=== PATIENT | female | born 1945 | race Caucasian/White ===

== ENCOUNTER 2021-03-27 08:43 | Day surgery (SDC) | payer OTHER ==
[2021-03-27] MEDS ORDERED: Ringers Lactate 1,000 ML IV ONE (08:47)
[2021-03-27] MEDS ORDERED: propofoL 200 MG/20 ML VIAL IV ONE ×2 (10:50→10:51)
[2021-03-27] MEDS ORDERED: LIDOCAINE 1% MPF 5 ML VIAL ONE (10:51)
--- NOTE | 2021-03-27 11:32 | ENDO RPT ---
[address], [address] COLONOSCOPY PROCEDURE REPORT EXAM DATE: 03/27/2021 PATIENT NAME: Debbie Puckett MR #: [id number] BIRTHDATE: 1945 ATTENDING: Donovan Corrales DR STATUS: outpatient TUG MASTER: Olena Mc RN and Ble Jackieoh Kang INDICATIONS: The patient is a 76 yr old Female here for a colonoscopy due to colon cancer screening PROCEDURE PERFORMED: Colonoscopy and Screening Colonoscopy MEDICATIONS: Per Anesthesia. ESTIMATED BLOOD LOSS: None CONSENT: The patient understands the risks and benefits of the procedure and understands that these risks include, but are not limited to: sedation, allergic reaction, infection, perforation and/or bleeding. Alternative means of evaluation and treatment include, among others: physical exam, x-rays, and/or surgical intervention. The patient elects to proceed with this endoscopic procedure. DESCRIPTION OF PROCEDURE: During intra-op preparation period all mechanical medical equipment was checked for proper function. Hand hygiene and appropriate measures for infection prevention was taken. Procedure, possible complications, alternatives including, but not limited to possibility of bleeding, perforation, tear, infection, sepsis, need for surgery, need for blood transfusion, were explained to the patient. After the risks, benefits and alternatives of the procedure were thoroughly explained, Informed consent was verified, confirmed and timeout was successfully executed by the treatment team. The patient was placed in the left lateral position. A digital rectal exam was performed and revealed external hemorrhoids and A digital rectal exam was performed and revealed internal hemorrhoids. After appropriate level of anesthesia, the scope was passed. The [id number] ([id number]) endoscope was introduced through the anus and advanced to the cecum, which was identified by both the appendix and ileocecal valve. The quality of the prep was fair. The instrument was then slowly withdrawn as the colon was fully examined. Scope withdrawal time was 9 minutes. COLON FINDINGS: Mild diverticulosis was noted in the sigmoid colon. No bleeding was noted from the diverticulosis. Small internal and external hemorrhoids were found. Retroflexed views revealed no abnormalities. The scope was then completely withdrawn from the patient and the procedure terminated. ADVERSE EVENTS: There were no complications. IMPRESSIONS: 1. Mild diverticulosis was noted in the sigmoid colon 2. Small internal and external hemorrhoids RECOMMENDATIONS: 1. avoid NSAIDS for 2 weeks 2. Monitor for any evidence of rectal bleeding. 3. yearly hemoquant 4. hemorrhoidal hygiene 5. low fiber / diverticular diet RECALL: Return in 5 year(s) for Colonoscopy. Donovan Corrales DR eSigned: Donovan Corrales DR 03/27/2021 11:31 AM cc: CPT CODES: ICD9 CODES: PATIENT NAME: Debbie Puckett MR#: [id number]
[2021-03-27 14:11] VITALS: BP 154/87; TEMP 97.5; O2SAT 99
== END 2021-03-27 12:05 | disposition home or self-care (01) ==
LOC: OR 08:43
PROVIDERS: ATTEND Surgery
PROC: 0DJD8ZZ Inspection of Lower Intestinal Tract, Via Natural or Artificial Opening Endoscopic (ICD-10-PCS; principal; 2021-03-27 10:30)
DX: Z12.11 Encounter for screening for malignant neoplasm of colon (principal); K64.4 Residual hemorrhoidal skin tags; K57.30 Diverticulosis of large intestine without perforation or abscess without bleeding; Z20.822 Contact with and (suspected) exposure to COVID-19
CPT/HCPCS: U0003; J2704; J7120; G0121

== ENCOUNTER 2023-07-05 20:43 | Observation (INO) | payer OTHER ==
[2023-07-05 21:23] LABS: Absolute Lymphocytes (CBC) 2.8 K/uL (0.7-4.9); Hematocrit 41.3 % (36.0-45.0); Lymphocytes % 31.9 % (15.3-44.8); MCV 94.3 fL (80-100); MPV 7.7 fL (7.6-11.3); Platelets 287 thou/uL (152-406); RBC Red Blood Cell Count 4.38 M/uL (3.86-4.86)
--- NOTE | 2023-07-05 21:42 | RAD REPORT ---
EXAM DESCRIPTION: RAD - Chest Single View - 07/05/2023 9:35 pm CLINICAL HISTORY: CHEST PAIN Chest pain. COMPARISON: Chest Pa And Lat (2 Views) dated 06/02/2022; Chest Pa And Lat (2 Views) dated 09/12/2019 FINDINGS: Portable technique limits examination quality. The lungs are grossly clear. The heart is normal in size. No displaced fractures. IMPRESSION: No acute intrathoracic process suspected.
[2023-07-05 21:52] LABS: Potassium 3.9 mEq/L (3.5-5.1); Troponin High Sensitivity 7.2 pg/mL (<58.9)
--- NOTE | 2023-07-05 21:57 | ER ---
Nurse's Notes [facility] Name: Debbie Puckett Age: 78 yrs Sex: Female : 1945 Arrival Date: 07/05/2023 Time: 20:43 Bed 3 Private MD: Diagnosis: Unstable angina;Chest pain, unspecified Presentation: 07/05 20:51 Chief complaint: EMS states: 78 YEAR OLD FEMALE REPORTS CHEST PAIN THAT STARTED AROUND ha1 1929. ON OUR ARRIVAL 325 mg OF ASPIRIN WERE GIVEN PT. REPORTS NO PAIN AT THIS MOMENT. 20:51 Coronavirus screen: Vaccine status:. Ebola Screen: No symptoms or risks identified at ha this time. Initial Sepsis Screen: Does the patient meet any 2 criteria? No. Patient's initial sepsis screen is negative. Does the patient have a suspected source of infection? No. Patient's initial sepsis screen is negative. Risk Assessment: Do you want to hurt yourself or someone else? Patient reports no desire to harm self or others. Onset of symptoms was July 05, 2023. 20:51 Method Of Arrival: EMS: [facility] 20:51 Acuity: ALEXANDER 3 ha1 Triage Assessment: 20:51 General: Appears comfortable, Behavior is calm, cooperative. Pain: Denies pain. Neuro: ha1 Level of Consciousness is awake, alert, obeys commands, Oriented to person, place, time, situation. Cardiovascular: Capillary refill < 3 seconds Patient's skin is warm and dry. Cardiovascular: Reports since PT STATES " BEFORE THE AMBULANCE GAVE ME ASPIRIN I WAS FEELING CHEST PAIN BUT NOT ANY MORE" DENIES CHEST PAIN. Respiratory: Airway is patent Respiratory effort is even, unlabored, Respiratory pattern is regular, symmetrical. GI: No signs and/or symptoms were reported involving the gastrointestinal system. Abdomen is round non-distended. : No signs and/or symptoms were reported regarding the genitourinary system. Derm: Skin is pink, warm \\T\\ dry. Musculoskeletal: Circulation, motion, and sensation intact. Range of motion: intact in all extremities. Historical: - Allergies: 20:51 Sulfa (Sulfonamide Antibiotics); ha1 - PMHx: 20:51 Hypertensive disorder; RIGHT BUNDLE BLOCK; ha1 - Immunization history:: Adult Immunizations up to date. - Social history:: Smoking status: Patient denies any tobacco usage or history of. - Family history:: not pertinent. - Hospitalizations: : No recent hospitalization is reported. Screenin:51 [facility] ED Fall Risk Assessment (Adult) History of falling in the last 3 months, ha1 including since admission No falls in past 3 months (0 pts) Confusion or Disorientation No (0 pts) Intoxicated or Sedated No (0 pts) Impaired Gait No (0 pts) Mobility Assist Device Used No (0 pt) Altered Elimination No (0 pt) Score/Fall Risk Level 0 - 2 = Low Risk Oriented to surroundings, Assessed \\T\\ reinforced patient's understanding of fall precautions, Hourly rounding (assess needs \\T\\ fall precautionary measures) done. Abuse screen: Denies threats or abuse. Denies injuries from another. Nutritional screening: No deficits noted. Tuberculosis screening: No symptoms or risk factors identified. Assessment: 20:51 Reassessment: SEE TRIAGE ASSESSMENT. ha1 21:50 Reassessment: Patient and/or family updated on plan of care and expected duration. Pain ha1 level reassessed. Patient is alert, oriented x 3, equal unlabored respirations, skin warm/dry/pink. Patient denies pain at this time. 22:25 Reassessment: REPORT GIVEN TO TRINH [facility]. ha1 23:00 Reassessment: No changes from previously documented assessment. Patient and/or family vc1 updated on plan of care and expected duration. Pain level reassessed. Patient is alert, oriented x 3, equal unlabored respirations, skin warm/dry/pink. Vital Signs: 20:51 BP 167 / 69; Pulse 63; Resp 17 S; Temp 97.9(T); Pulse Ox 98% on R/A; Weight 100.7 kg; ha1 Height 5 ft. 4 in. ; Pain 0/10; 21:45 BP 144 / 64; Pulse 64; Resp 17 S; Pulse Ox 97% on R/A; ha1 22:30 BP 140 / 62; Pulse 63; Resp 14; Pulse Ox 98% ; vc1 20:51 Body Mass Index 38.11 (100.70 kg, 162.56 cm) ha1 20:51 Pain Scale: Adult [facility] ED Course: 20:51 Patient arrived in ED. vc1 20:51 Arm band placed on left wrist. ha1 20:51 Patient has correct armband on for positive identification. Bed in low position. Call ha1 light in reach. Side rails up X 1. Adult w/ patient. 20:51 Maintain EMS IV. Dressing intact. Good blood return noted. Site clean \\T\\ dry. Gauge \\T\\ monsalve 1 site: 20 JENNIFER LEFT AC. 20:54 Abel Ray MD is Attending Physician. rn 21:01 Triage completed. ha1 21:37 XRAY Chest (1 view) In Process Unspecified. EDMS 21:56 Jacob Clements MD is Hospitalizing Provider. rn 22:10 Provided Education on: NEED FOR ADMIT . ha1 23:10 No provider procedures requiring assistance completed. Patient admitted, IV remains in vc1 place. Administered Medications: No medications were administered Medication: 20:51 VIS not applicable for this client. ha1 Outcome: 21:56 Decision to Hospitalize by Provider. rn 23:10 Admitted to Tele accompanied by nurse, via wheelchair, room 402, with chart, Report vc1 called to TRINH Mc 23:10 Condition: good 23:11 Patient left the ED. vc1 Signatures: Dispatcher [employer] EDMS Abel Ray MD MD rn Calcote, Vanessa, RN RN vc1 Sabine Lopez, TRINH RN ha1
--- NOTE | 2023-07-05 21:57 | EDPHYS ---
Physician Documentation [facility] Name: Debbie Puckett Age: 78 yrs Sex: Female : 1945 Arrival Date: 07/05/2023 Time: 20:43 Bed 3 Private MD: ED Physician Abel Ray HPI: 07/05 21:14 This 78 yrs old Female presents to ER via EMS with complaints of chest pain . rn 21:14 The patient or guardian reports chest pain that is located primarily in the substernal rn area. Onset: just prior to arrival. The pain radiates to left neck. Associated signs and symptoms: Pertinent positives: shortness of breath, Pertinent negatives: abdominal pain, cough, diaphoresis, lower extremity pain, lower extremity swelling, lightheadedness, nausea, palpitations. The chest pain is described as a heaviness, a pressure. Duration: The patient or guardian reports a single episode, that lasted 1 hour(s). Severity of pain: At its worst the pain was moderate in the emergency department the pain has resolved. The patient has experienced similar episodes in the past. Patient reports chest pain for about 1 hour prior to arrival, constant, substernal with radiation to the neck. Associated with shortness of breath. Reports has been having intermittent episodes of chest pain over the last couple weeks, saw oiler helper this week with stress test and echo and was told abnormal stress test and needed heart cath. Has not scheduled her heart cath yet. Chest pain worse and lasted longer tonight. Chest pain resolved since arrival and given aspirin by EMS 324 mg.. Historical: - Allergies: 20:51 Sulfa (Sulfonamide Antibiotics); ha1 - PMHx: 20:51 Hypertensive disorder; RIGHT BUNDLE BLOCK; ha1 - Immunization history:: Adult Immunizations up to date. - Social history:: Smoking status: Patient denies any tobacco usage or history of. - Family history:: not pertinent. - Hospitalizations: : No recent hospitalization is reported. ROS: 21:14 Constitutional: Negative for fever, chills, and weight loss, Cardiovascular: Positive rn for chest pain Respiratory: Negative for cough, wheezing, and pleuritic chest pain Abdomen/GI: Negative for abdominal pain, nausea, vomiting, diarrhea, and constipation, MS/Extremity: Negative for injury and deformity, Skin: Negative for injury, rash, and discoloration, Neuro: Negative for headache, weakness, numbness, tingling, and seizure, Exam: 21:14 Constitutional: This is a well developed, well nourished patient who is awake, alert, rn and in no acute distress. Head/Face: Normocephalic, atraumatic. Cardiovascular: Regular rate and rhythm. No pulse deficits. Respiratory: No increased work of breathing, no retractions or nasal flaring. Abdomen/GI: Soft, no abdominal tenderness or rebound MS/ Extremity: Pulses equal, no cyanosis. Neurovascular intact. Full, normal range of motion. Equal circumference. Neuro: Awake and alert, GCS 15 21:29 ECG was reviewed by the Attending Physician. rn Vital Signs: 20:51 BP 167 / 69; Pulse 63; Resp 17 S; Temp 97.9(T); Pulse Ox 98% on R/A; Weight 100.7 kg; ha1 Height 5 ft. 4 in. ; Pain 0/10; 21:45 BP 144 / 64; Pulse 64; Resp 17 S; Pulse Ox 97% on R/A; ha1 22:30 BP 140 / 62; Pulse 63; Resp 14; Pulse Ox 98% ; vc1 20:51 Body Mass Index 38.11 (100.70 kg, 162.56 cm) ha1 20:51 Pain Scale: Adult ha1 MDM: 20:54 Patient medically screened. rn 21:54 Differential diagnosis: acute myocardial infarction, acute pericarditis, anxiety, rn coronary artery disease chest wall pain, esophagitis, gastritis, pleurisy, pneumothorax, stable angina, unstable angina. HEART Score: History: Highly Suspicious (2), ECG: Non specific repolarization disturbance / LBTB / PM (1), Age: > or = 65 years (2), Risk Factors: 1 or 2 risk factors (1), Troponin: < or = 1 x Normal Limit (0), Total Score = 6. The patient was not given aspirin in the Emergency Department. Administered by EMS. Data reviewed: vital signs, nurses notes, lab test result(s), EKG, radiologic studies, plain films, and as a result, I will admit patient. Consideration of Admission/Observation Patient was admitted/placed on observation. Escalation of care including admission/observation considered. Care significantly affected by the following chronic conditions: Hypertension. Counseling: I had a detailed discussion with the patient and/or guardian regarding the historical points, exam findings, and any diagnostic results supporting the discharge/admit diagnosis, lab results, radiology results, the need for further work-up and treatment in the hospital. ED course: Troponin negative, no ischemia on ECG. Patient gives story of unstable angina with increase in chest pain frequency and now longer in duration which prompted her to come in. Already had outpatient stress and echo which were abnormal. Told to schedule cath but had not yet. Will admit to hospitalist service for cardiology evaluation and heart cath. EMS administered aspirin prior to arrival, chest pain resolved since arrival.. 02 20:56 Order name: Basic Metabolic Panel; Complete Time: 21:53 rn 07/05 20:56 Order name: CBC with Diff; Complete Time: 21:37 rn 07/05 20:56 Order name: Troponin HS; Complete Time: 21:53 rn 07/05 22:14 Order name: Urinalysis w/ reflexes EDAK 07/05 22:14 Order name: CBC with Automated Diff EDAK 07/05 22:14 Order name: CBC with Automated Diff EDAK 07/05 22:14 Order name: CBC with Automated Diff EDAK 07/05 22:14 Order name: CBC with Automated Diff EDAK 07/05 22:14 Order name: Comprehensive Metabolic Panel EDAK 07/05 22:14 Order name: Comprehensive Metabolic Panel [facility] 07/05 22:14 Order name: Comprehensive Metabolic Panel [facility] 07/05 22:14 Order name: Comprehensive Metabolic Panel [facility] 07/05 22:14 Order name: Troponin High Sensitivity EDAK 07/05 22:14 Order name: Troponin High Sensitivity [facility] 07/05 22:14 Order name: Troponin High Sensitivity [facility] 07/05 22:14 Order name: Troponin High Sensitivity [facility] 07/05 23:03 Order name: Glucose, Ancillary Testing EDAK 07/05 20:56 Order name: XRAY Chest (1 view); Complete Time: 21:45 rn 07/05 20:56 Order name: EKG; Complete Time: 20:56 rn 07/05 20:56 Order name: Cardiac monitoring; Complete Time: 20:56 rn 07/05 20:56 Order name: EKG - Nurse/Tech; Complete Time: 20:56 rn 07/05 20:56 Order name: IV Saline Lock; Complete Time: 20:56 rn 07/05 20:56 Order name: Labs collected and sent; Complete Time: 20:56 rn 07/05 20:56 Order name: O2 Per Protocol; Complete Time: 20:56 rn 07/05 20:56 Order name: O2 Sat Monitoring; Complete Time: 20:56 rn EC:29 Rate is 67 beats/min. Rhythm is regular. QRS [place] is Normal. WI interval is normal. QRS rn interval is prolonged at 124 msec. QT interval is normal. No Q waves. T waves are Normal. No ST changes noted. Clinical impression: NSR w/ Non-specific ST/T Changes and RBBB. Interpreted by me. Reviewed by me. Administered Medications: No medications were administered Disposition Summary: 07/05/23 21:56 Hospitalization Ordered Notes: Hospitalization Status: Inpatient Admission rn Provider: Jacob Clements rn Location: Telemetry/MedSurg (Inpatient) rn Condition: Stable rn Problem: an ongoing problem rn Symptoms: have worsened rn Bed/Room Type: Standard rn Room Assignment: 402(07/05/23 22:17) as6 Diagnosis - Unstable angina rn - Chest pain, unspecified rn Forms: - Medication Reconciliation Form rn - SBAR form rn - Leadership Thank You Letter rn Signatures: Dispatcher [employer] EDAbel Sanchez MD MD rn Slawson, Ashby RN RN as6 Sabine Lopez RN RN ha1 Corrections: (The following items were deleted from the chart) 21:16 21:14 Patient reports chest pain for about 1 hour prior to arrival, constant, rn substernal with radiation to the neck. Associated with shortness of breath. Reports has been having intermittent episodes of chest pain over the last couple weeks, saw oiler helper this week with stress test and echo and was told abnormal stress test and needed heart cath. Has not scheduled her heart cath yet. Chest pain worse and lasted longer tonight.. rn 22:17 21:56 rn as6
[2023-07-05] MEDS ORDERED: ACETAMINOPHEN 325 MG TABLET PO PRN (22:05)
[2023-07-05] MEDS ORDERED: ONDANSETRON 4 MG/2 ML VIAL IV PRN (22:05)
[2023-07-05] MEDS ORDERED: ALPRAZOLAM 0.25 MG TABLET PO PRN (22:05)
--- NOTE | 2023-07-05 22:12 | P.HP ---
Certification for Inpatient Patient admitted to: Observation With expected LOS: <2 Midnights Practitioner: I am a practitioner with admitting privileges, knowledge of patient current condition, hospital course, and medical plan of care. Services: Services provided to patient in accordance with Admission requirements found in Title 42 Section 412.3 of the Code of Federal Regulations Patient History Date of Service: 07/06/23 Reason for admission: Chest pain History of Present Illness: 78-year-old female patient with medical history significant for hyperlipidemia, morbid obesity, hypertension and what had recurrent chest pain who came to the ED with persistent chest pain. She reported that she had ongoing recurrent chest pain outpatient stress test that was positive. She was to have scheduled outpatient left heart cath procedure done this week so subsequently she developed persistent pain. Chest pain was rated 8 out of 10 in intensity located in the mid chest region with radiation to the neck area. She decided to come to the ED because pain was persistent unrelenting. In the ED she EKG done showed no issues and initial troponin was normal. Because of her history and prior abnormal stress test she was admitted for inpatient care public relations officer evaluation. Allergies Sulfa (Sulfonamide Antibiotics) Allergy (Verified 07/05/23 23:35) Itching Home Medications: Acyclovir 200 mg PO PRN PRN 03/25/21 Multivit,Ther Iron,Ca,FA & Min [Centrum Tablet] 1 tab PO DAILY 03/25/21 oxyBUTYnin chloride [Ditropan Xl] 10 mg PO DAILY 03/25/21 Cetirizine HCl [Zyrtec] 5 mg PO BEDTIME 07/05/23 Loratadine [Claritin] 10 mg PO DAILY 07/05/23 Losartan Potassium [Cozaar] 25 mg PO DAILY 07/05/23 Review of Systems General: Unremarkable Eyes: Unremarkable ENT: Unremarkable Respiratory: Unremarkable Cardiovascular: Chest Pain Gastrointestinal: Unremarkable Genitourinary: Unremarkable Musculoskeletal: Unremarkable Integumentary: Unremarkable Neurological: Unremarkable Lymphatics: Unremarkable Physical Examination - Physical Exam General: Alert, Oriented x3 HEENT: Atraumatic Neck: Supple Respiratory: Normal air movement Cardiovascular: Regular rate/rhythm, Normal S1 S2 Gastrointestinal: Soft and benign Musculoskeletal: No swelling Neurological: Normal speech, Normal strength at 5/5 x4 extr - Studies Laboratory Data (last 24 hrs) 07/05/23 07/05/23 21:00 21:00 WBC 8.70 Hgb 14.2 Hct 41.3 Plt Count 287 Sodium 137 Potassium 3.9 BUN 21 H Creatinine 0.97 Glucose 110 H Assessment and Plan - Plan Chest pain: Recurrent and concerning for unstable angina. Will continue on telemetry, trend troponin and also obtain echocardiogram to assess cardiac function. Continue aspirin therapy and also obtain lipid panel to assess further. Will have public relations officer evaluate for possible left heart cath. Hypertension: We will monitor vital signs per unit protocol and continue outpatient antihypertensive medications. Morbid obesity: We will continue to encourage weight loss. Hyperlipidemia: We will continue statin therapy and obtain lipid panel to assess. Prophylaxis Lovenox for DVT prophylaxis. CODE STATUS: Full code. Disposition: We will treat ACS and discharge her when she is deemed clinically stable. - Advance Directives Does patient have a Living Will: No Does patient have a Durable POA for Healthcare: No
[2023-07-05 23:39] VITALS: BMI 39.4
[2023-07-06 00:53] LABS: Specific Gravity 1.023 (1.005-1.030); Urine Bacteria None Seen /HPF (<20); Urine Bilirubin NEGATIVE (Negative); Urine Blood Negative (Negative); Urine Clarity Clear (Clear); Urine Color Light-Yellow (Yellow); Urine Glucose NEGATIVE (Negative); Urine Mucus Slight /HPF (None Seen); Urine Protein NEGATIVE (Negative); Urine RBC <5 /HPF (None Seen); Urine Urobilinogen Normal (Normal)
[2023-07-06] MEDS ORDERED: MORPHINE 2 MG/ML SYR IV PRN (05:23)
[2023-07-06 06:35] LABS: Absolute Lymphocytes (CBC) 2.9 K/uL (0.7-4.9); Hematocrit 37.7 % (36.0-45.0); Lymphocytes % 40.5 % (15.3-44.8); MCV 94.4 fL (80-100); MPV 7.4 fL (7.6-11.3); Platelets 249 thou/uL (152-406); RBC Red Blood Cell Count 3.99 M/uL (3.86-4.86)
[2023-07-06 06:57] LABS: Albumin 2.9 g/dL (3.4-5.0); Bilirubin Total 0.5 mg/dL (0.2-1.0); Potassium 3.6 mEq/L (3.5-5.1); Protein, Total 6.3 g/dL (6.4-8.2); Troponin High Sensitivity 8.3 pg/mL (<58.9)
[2023-07-06] MEDS: ASPIRIN 81 MG CHEWABLE TABLET PO SCH (08:46)
[2023-07-06] MEDS: ENOXAPARIN 40 MG/0.4 ML SQ SCH (08:47)
--- NOTE | 2023-07-06 11:06 | P.CNS ---
Date of Consult: 07/06/23 Chief Complaint: Chest pain History of Present Illness: 78 y/o female with PMH of HTN, HLD, Obesity, HLD presented with worsening chest pain, she had it for one hour yesterday, feels like pressure in the middle of the chest, patient was seen earlier in clinic and she had an abnormal stress test and was getting scheduled as outpatient for coronary angiogram, denies palpitation, no syncope. Allergies Sulfa (Sulfonamide Antibiotics) Allergy (Verified 07/05/23 23:35) Itching Home Medications: Acyclovir 200 mg PO PRN PRN 03/25/21 Multivit,Ther Iron,Ca,FA & Min [Centrum Tablet] 1 tab PO DAILY 03/25/21 oxyBUTYnin chloride [Ditropan Xl] 10 mg PO DAILY 03/25/21 Cetirizine HCl [Zyrtec] 5 mg PO BEDTIME 07/05/23 Loratadine [Claritin] 10 mg PO DAILY 07/05/23 Losartan Potassium [Cozaar] 25 mg PO DAILY 07/05/23 - Past Medical/Surgical History Diabetic: No -: HTN -: R Bundle branch block - Social History Alcohol use: Yes CD- Drugs: No Caffeine use: No Place of Residence: Home Review of Systems 10-point ROS is otherwise unremarkable Cardiovascular: Chest Pain Physical Examination Temp Pulse Resp BP Pulse Ox 96.9 F 65 18 146/65 H 97 07/06/23 08:00 07/06/23 08:00 07/06/23 08:00 07/06/23 08:00 07/06/23 08:00 General: Alert, Oriented x3 HEENT: Atraumatic, Normocephalic Neck: Supple, 2+ carotid pulse no bruit Respiratory: Clear to auscultation bilaterally Cardiovascular: No edema, Normal S1 S2 Gastrointestinal: Normal bowel sounds Laboratory Data (last 24 hrs) 07/05/23 07/05/23 21:00 21:00 WBC 8.70 Hgb 14.2 Hct 41.3 Plt Count 287 Sodium 137 Potassium 3.9 BUN 21 H Creatinine 0.97 Glucose 110 H - Problems (1) 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 keep NPO
[2023-07-06] MEDS: NA CHLORIDE 0.9% 500 ML ONE (12:19)
[2023-07-06] MEDS ORDERED: LIDOCAINE 1% 20 ML MDV ONE (13:13)
[2023-07-06] MEDS ORDERED: HEPA 1000U/500MLS 2,000 UNIT/1,000 ML BAG IV ONE (13:13)
[2023-07-06] MEDS ORDERED: ATROPINE SULF 1 MG/10 ML SYR IV ONE (13:13)
[2023-07-06] MEDS ORDERED: VERAPAMIL HCL 10 MG/4 ML VIAL IV ONE (13:13)
[2023-07-06] MEDS ORDERED: MIDAZOLAM HCL 2 MG/2 ML INJ ONE (13:13)
[2023-07-06] MEDS ORDERED: HEPARIN 5000 UNIT/ML 1 ML VIAL ONE (13:13)
[2023-07-06] MEDS ORDERED: FENTANYL CITR 100 MCG/2 ML ONE (13:13)
[2023-07-06] MEDS ORDERED: CLOPIDOGREL 75 MG TABLET ONE (13:14)
[2023-07-06] MEDS ORDERED: HEPARIN 10,000 UNIT/10 ML VIAL IV ONE (13:14)
[2023-07-06] MEDS ORDERED: TICAGRELOR 90 MG TABLET PO ONE (13:14)
[2023-07-06] MEDS ORDERED: ASPIRIN 325 MG TAB ONE (13:14)
--- NOTE | 2023-07-06 13:24 | ECHO ---
HEIGHT: 5 ft 4 in WEIGHT: 230 lb 0 oz DATE OF STUDY: 07/06/[address]: Jacob Clements MD 2-DIMENSIONAL: YES M.MODE: YES DOPPLER: YES COLOR FLOW: YES TDS: PORTABLE: YES DEFINITY: BUBBLE STUDY: DIAGNOSIS: PATIENT WITH RECURRING CHEST PAIN CARDIAC HISTORY: CATHERIZATION: NO SURGERY: NO PROSTHETIC VALVE: NO PACEMAKER: NO MEASUREMENTS (cm) DIASTOLIC (NORMALS) SYSTOLIC (NORMALS) IVSd 1.1 (0.6-1.2) LA Diam 2.5 (1.9-4.0) LVEF 73% LVIDd 4.2 (3.5-5.7) LVIDs 2.4 (2.0-3.5) %FS 42% LVPWd 1.2 (0.6-1.2) Ao Diam 2.5 (2.0-3.7) 2 DIMENSIONAL ASSESSMENT: RIGHT ATRIUM: NORMAL LEFT ATRIUM: NORMAL RIGHT VENTRICLE: NORMAL LEFT VENTRICLE: NORMAL TRICUSPID VALVE: NORMAL MITRAL VALVE: NORMAL PULMONIC VALVE: NORMAL AORTIC VALVE: NORMAL PERICARDIAL EFFUSION: TRACE AORTIC ROOT: TRACE AORTIC REGURGITATION LEFT VENTRICULAR WALL MOTION: NORMAL DOPPLER/COLOR FLOW: GRADE I DIASTOLIC DYSFUNCTION COMMENTS: 1. NORMAL LEFT VENTRICULAR SYSTOLIC FUNCTION, NORMAL WALL MOTION, EJECTION FRACTION 55-60% 2. GRADE I DIASTOLICDYSFUNCTION 3. TRADE AORTIC REGURGITAITION, TRACE TRICUSPID REGURGITATION 4. RIGHT VENTRICULAR SYSTOLIC PRESSURE 25-30 mmHg TECHNOLOGIST: JENNY BOWSER
--- NOTE | 2023-07-06 13:33 | EKG ---
Test Date: 2023-07-05 Test Time: 20:45:58 Commercial Construction Superintendent: KIRT MEASUREMENT RESULTS: Intervals: Rate: 67 CO: 180 QRSD: 124 QT: 424 QTc: 448 [place]: P: 19 CO: 180 QRS: 30 T: 43 INTERPRETIVE STATEMENTS: Normal sinus rhythm Right bundle branch block Abnormal ECG Compared to ECG 09/12/2019 11:46:00 Sinus bradycardia no longer present Electronically Signed On 07-06-23 13:32:24 CDL [employer] by Jeremiah Miller
--- NOTE | 2023-07-06 14:25 | P.DS ---
Admission Date: 07/05/23 Discharge Date: 07/06/23 Disposition: ROUTINE DISCHARGE Discharge Condition: FAIR Reason for Admission: Chest pain - Problems (1) Chest pain Current Visit: Yes Status: Acute (2) Morbid obesity Current Visit: Yes Status: Acute (3) Essential hypertension Current Visit: Yes Status: Acute Brief History of Present Illness: 78-year-old female patient with medical history significant for hyperlipidemia, morbid obesity, hypertension and who has been experiencing recurrent chest pain came to the ED with a chest pain episode. She reported that she underwent outpatient stress test which was positive. She was scheduled for outpatient left heart cath procedure this week. Chest pain located in the mid chest region with radiation to the neck area. In the ED, EKG done did not show any sign of acute ischemia and initial troponin was normal. Patient was hospitalized for ACS rule out and cardiology evaluation for possible cardiac cath. Hospital Course: Patient was placed in observation on the medical floor. Troponin trended negative. Patient was seen and evaluated by cardiology Dr. Miller who performed cardiac catheterization. No cardiac intervention done. Patient deemed stable for discharge per Dr. Hooker. She is prescribed baby aspirin. No other changes made in her home medications. Vital Signs/Physical Exam: Temp Pulse Resp BP Pulse Ox 96.9 F 65 18 146/65 H 97 07/06/23 08:00 07/06/23 08:00 07/06/23 08:00 07/06/23 08:00 07/06/23 08:00 General: Alert, In no apparent distress, Oriented x3 HEENT: Mucous membr. moist/pink Neck: Supple, JVD not distended Respiratory: Clear to auscultation bilaterally, Normal air movement Cardiovascular: No edema, Regular rate/rhythm, Normal S1 S2 Gastrointestinal: Normal bowel sounds, Soft and benign, Non-distended, No tenderness Musculoskeletal: No swelling Integumentary: No rashes, No cyanosis Neurological: Normal strength at 5/5 x4 extr Laboratory Data at Discharge: WBC 7.20 thou/uL (4.3-10.9) 07/06/23 06:06 Hgb 13.1 g/dL (12.0-15.0) 07/06/23 06:06 Hct 37.7 % (36.0-45.0) 07/06/23 06:06 Plt Count 249 thou/uL (152-406) 07/06/23 06:06 Sodium 139 mEq/L (136-145) 07/06/23 06:06 Potassium 3.6 mEq/L (3.5-5.1) 07/06/23 06:06 BUN 17 mg/dL (7-18) 07/06/23 06:06 Creatinine 0.87 mg/dL (0.55-1.02) 07/06/23 06:06 Glucose 100 mg/dL (74-106) 07/06/23 06:06 Total Bilirubin 0.5 mg/dL (0.2-1.0) 07/06/23 06:06 AST 15 U/L (15-37) 07/06/23 06:06 ALT 19 U/L (13-56) 07/06/23 06:06 Alkaline Phosphatase 71 U/L (45-117) 07/06/23 06:06 Home Medications: Acyclovir 200 mg PO PRN PRN 03/25/21 Multivit,Ther Iron,Ca,FA & Min [Centrum Tablet*] 1 tab PO DAILY 03/25/21 oxyBUTYnin chloride [Ditropan Xl] 10 mg PO DAILY 03/25/21 Cetirizine HCl [Zyrtec*] 5 mg PO BEDTIME 07/05/23 Loratadine [Claritin*] 10 mg PO DAILY 07/05/23 Losartan Potassium [Cozaar] 25 mg PO DAILY 07/05/23 Aspirin Chewable [Aspirin Chewable*] 81 mg PO DAILY #30 tab.chew 07/06/23 New Medications: Aspirin Chewable [Aspirin Chewable*] 81 mg PO DAILY #30 tab.chew Diet: AHA Activity: Ad naeem Followup: NONE,NONE [Primary Care Provider] - 1-2 Weeks Jeremiah Miller MD [ACTIVE - CAN ADMIT] - 1-2 Weeks Time spent managing pt's care (in minutes): 25
[2023-07-06 15:57] VITALS: O2SAT 99
[2023-07-06 17:24] VITALS: BP 186/80; TEMP 97.7
--- NOTE | 2023-07-07 00:38 | OP ---
Date of Procedure: 07/06/2023 Surgeon: THOMAS JONES Procedure Performed: 1.Selective coronary angiogram. 2.Left heart catheterization. Indication: Chest pain with abnormal stress test. Access: Right radial artery 6-Cameroonian, closed with TR band. Complications: None. Bleeding: Less than 20 mL. Anesthesia: Total sedation time was 30 minutes, used fentanyl and Versed. Description Of Procedure: After risks, benefits, and alternatives were explained, the patient agreed to procedure and signed informed consent. The patient was brought to the cardiac catheterization la boratory, prepped and draped in a sterile fashion. Then, I accessed right radial artery using pediat herminia micropuncture kit, placed a 6-Cameroonian slender sheath and took 5-Cameroonian tiger 4 catheter into the a ortic root, engaged left main, took standard views and then the RCA, took standard views and then the catheter was pushed over the wire into the LV, measured LVEDP. Pullback not recording any gradient and removed the catheter and the sheath, placed TR band with good hemostasis. Findings: 1.Left main: Large and normal. 2.LAD: Large vessel. Proximal segment is normal. Mid segment after the diagonal takeoff, there is focal 20% to 30% stenosis and a long segment in the mid to distal with 10% to 20% stenosis. Rest of the LAD is normal. Normal diagonal branches. 3.Left circumflex: Moderate size and normal. 4.RCA: It is large size and dominant and normal. 5.Normal LVEDP of 5 mmHg. Conclusion: 1.Mild nonobstructive coronary artery disease. 2.Normal LVEDP. Recommendation: Medical management. From Cardiology standpoint, the patient can be released today a nd follow up as an outpatient within 1-2 weeks. SR/MODL Voice ID: [id number] Report ID: [id number]
== END 2023-07-06 16:50 | disposition home or self-care (01) ==
LOC: ER 20:43 → 4TH 22:05
PROVIDERS: ADMIT Internal Medicine Nephrology; ATTEND Internal Medicine
PROC: 4A023N7 Measurement of Cardiac Sampling and Pressure, Left Heart, Percutaneous Approach (ICD-10-PCS; principal; 2023-07-06)
PROC: B2011ZZ Plain Radiography of Multiple Coronary Arteries using Low Osmolar Contrast (ICD-10-PCS; 2023-07-06)
DX: I25.112 Atherosclerotic heart disease of native coronary artery with refractory angina pectoris (principal); I10 Essential (primary) hypertension; I45.10 Unspecified right bundle-branch block; E78.5 Hyperlipidemia, unspecified; E66.01 Morbid (severe) obesity due to excess calories; Z68.39 Body mass index [BMI] 39.0-39.9, adult; Z79.899 Other long term (current) drug therapy; Z88.2 Allergy status to sulfonamides
CPT/HCPCS: 36415; 71045; 76937; 80048; 80053; 81001; 82947; 84484; 85025; 93005; 93306; 93458; 99152; 99153; 99285; C1893; G0378; J0461; J1644; J1650; J2001; J2250; J3010; J7040; Q9966

== ENCOUNTER 2024-08-04 17:40 | Emergency (ER) | payer OTHER ==
--- NOTE | 2024-08-04 19:03 | RAD REPORT ---
EXAMINATION: TWO VIEW CHEST XR CLINICAL INDICATION: BLUNT CHEST TRAUMA TECHNIQUE: 2 views of the chest was performed. COMPARISON: 08/14/2023 FINDINGS: The lungs are hyperexpanded suggesting COPD. The heart is upper limit of normal in size. No displaced fractures evident. IMPRESSION: COPD is suspected without acute finding identified.
--- NOTE | 2024-08-04 19:23 | EDPHYS ---
Physician Documentation [facility] Name: Debbie Puckett Age: 79 yrs Sex: Female : 1945 Arrival Date: 08/04/2024 Time: 17:40 Bed DIS7 Private MD: ED Physician Mart Nation HPI: 08/04 21:18 This 79 yrs old Female presents to ER via Ambulatory with complaints of dr5 Breast Injury. 21:18 Trauma demographics: Location of Injury: The injury occurred [place], Date: August 04, dr5 2024, Time: 14:30. Mechanism of injury: Fall:. Patient is a 79-year-old female with hypertension coming in with fall to right chest causing patient to have bruising to right breast. Patient denies loss of consciousness, hitting head, or any other injuries.. Historical: - Allergies: 17:57 Sulfa (Sulfonamide Antibiotics); ll1 - PMHx: 17:57 Hypertensive disorder; RIGHT BUNDLE BLOCK; ll1 - PSHx: 17:57 None; ll1 - Immunization history:: Adult Immunizations up to date. - Infectious Disease History:: Denies. - Social history:: Smoking status: Patient denies any tobacco usage or history of. ROS: 21:18 Constitutional: as per hpi dr5 Exam: 21:18 Constitutional: This is a well developed, well nourished patient who is awake, alert, dr5 and in no acute distress. Head/Face: Normocephalic, atraumatic. Eyes: Pupils equal round and reactive to light, extra-ocular motions intact. Lids and lashes normal. Conjunctiva and sclera are non-icteric and not injected. Cornea within normal limits. Periorbital areas with no swelling, redness, or edema. Cardiovascular: Regular rate and rhythm with a normal S1 and S2. Normal PMI, no JVD. No pulse deficits. 21:18 Chest/axilla: Inspection: Bruising / Contusion noted to right breast. TRINH Lees present on breast exam., Breasts: swelling, that is moderate, of the right breast, tenderness, that is moderate, of the right breast, Vital Signs: 17:56 BP 147 / 84; Pulse 87; Resp 18; Temp 97.8; Pulse Ox 98% ; Weight 108.86 kg; Height 5 ll1 ft. 4 in. ; Pain 5/10; 19:05 BP 159 / 74; Pulse 65; Resp 19; Temp 98.6; Pulse Ox 97% on R/A; ay 17:56 Body Mass Index 41.20 (108.86 kg, 162.56 cm) ll1 17:56 Pain Scale: Adult ll1 Procedures: 21:18 Splinting: Splint applied to chest and right arm using sling, applied by myself. dr5 Examined by me, post splint application: neurovascular intact, 2+ distal pulses palpable, brisk capillary refill noted, Patient tolerated well. MDM: 17:47 Medical Screening Exam initiated dr5 21:18 Differential diagnosis: Rib Fracture, Breast Contusion, PNA. Data reviewed: vital dr5 signs, nurses notes. I considered the following discharge prescriptions or medication management in the emergency department Medications were administered in the Emergency Department. See MAR. Historians other than the Patient: Spouse/Significant Other: . Care significantly affected by the following chronic conditions: Hypertension. Care significantly affected by the following Social Determinants of Health: Poor access to healthcare and/or lack of insurance, Poor access to transportation, Problems related to employment. Counseling: I had a detailed discussion with the patient and/or guardian regarding the historical points, exam findings, and any diagnostic results supporting the discharge/admit diagnosis, the presence of at least one elevated blood pressure reading (>120/80) during this emergency department visit, radiology results, the need for outpatient follow up, for definitive care, a family practitioner, to return to the emergency department if symptoms worsen or persist or if there are any questions or concerns that arise at home. Medication response: Beyer. Response to treatment: the patient's symptoms have markedly improved after treatment. ED course: Patient placed in right arm sling to help elevate right breast. Patient reports that sling remarkably improved her pain. Will send patient home with 800 milligrams ibuprofen as well as cephalexin to prevent infection. Patient is agreeable to plan and will follow-up with primary care doctor this week.. 08/04 18:00 Order name: Chest Pa And Lat (2 Views) XRAY; Complete Time: 19:07 dr5 08/04 19:34 Order name: Sling; Complete Time: 19:56 dr5 Administered Medications: 19:56 Drug: HYDROcodone-acetaminophen PO 5 mg-325 mg 2 tabs PO once Route: PO; db 20:00 Follow up: Response: No adverse reaction; Marked relief of symptoms ha1 Disposition Summary: 08/04/24 19:22 Discharge Ordered Notes: Location: Home dr5 Condition: Stable dr5 Diagnosis - Disorder of breast, unspecified dr5 Followup: dr5 - With: Emergency Department - When: As needed - Reason: Worsening of condition Followup: dr5 - With: Private Physician - When: 1 - 2 days - Reason: Recheck today's complaints, Continuance of care, Re-evaluation by your physician Discharge Instructions: - Discharge Summary Sheet dr5 - Chest Contusion, Adult dr5 Forms: - Medication Reconciliation Form dr5 - Antibiotic Education dr5 - Prescription Opioid Use dr5 - Patient Portal Instructions dr5 - Leadership Thank You Letter dr5 Prescriptions: - Cephalexin 500 mg Oral capsule - take 1 capsule ORAL route every 12 hours for 7 days; 14 capsule; Refills: 0, dr5 Product Selection Permitted - Ibuprofen 800 mg Oral Tablet - take 1 tablet ORAL route every 12 hours As needed take with food; 20 tablet; dr5 Refills: 0, Product Selection Permitted - Tramadol 50 mg Oral tablet - take 1 tablet ORAL route every 8 hours as needed; 20 tablet; Refills: 0, dr5 Product Selection Permitted Addendum: 08/05/2024 21:49 I was immediately available for consultation during this patient's visit. I did not e c2 personally see the patient or discuss the patient with the ETELVINA. . Signatures: Dispatcher [employer] Toni Rob, RN RN ll1 Mulu Damon RN RN db Mart Nation MD MD ec2 Dwayne Gutiérrez, HIGH SCHOOL SCIENCE TEACHER-C HIGH SCHOOL SCIENCE TEACHER-Cdr5 Sabine Lopez RN ha1
--- NOTE | 2024-08-04 19:23 | ER ---
Nurse's Notes [facility] Name: Debbie Puckett Age: 79 yrs Sex: Female : 1945 Arrival Date: 08/04/2024 Time: 17:40 Bed DIS7 Private MD: Diagnosis: Disorder of breast, unspecified Presentation: 08/04 17:56 Chief complaint: Patient states: [place]. R breast pain, ll1 bruising since. No LOC or head injury. Coronavirus screen: Client denies travel out of the [place] in the last 14 days. At this time, the client does not indicate any symptoms associated with coronavirus-19. Ebola Screen: Patient denies travel to an Ebola-affected area in the 21 days before illness onset. Initial Sepsis Screen: Does the patient meet any 2 criteria? No. Patient's initial sepsis screen is negative. Does the patient have a suspected source of infection? No. Patient's initial sepsis screen is negative. Risk Assessment: Do you want to hurt yourself or someone else? Patient reports no desire to harm self or others. Onset of symptoms was August 04, 2024. 17:56 Method Of Arrival: Ambulatory ll1 17:56 Acuity: ALEXANDER 4 ll1 Triage Assessment: 20:00 General: Appears comfortable, Behavior is calm, cooperative. ha1 Historical: - Allergies: 17:57 Sulfa (Sulfonamide Antibiotics); ll1 - PMHx: 17:57 Hypertensive disorder; RIGHT BUNDLE BLOCK; ll1 - PSHx: 17:57 None; ll1 - Immunization history:: Adult Immunizations up to date. - Infectious Disease History:: Denies. - Social history:: Smoking status: Patient denies any tobacco usage or history of. Screenin:03 [facility] ED Fall Risk Assessment (Adult) History of falling in the last 3 months, db including since admission Yes- single mechanical fall (1 pt) Confusion or Disorientation No (0 pts) Intoxicated or Sedated No (0 pts) Impaired Gait No (0 pts) Mobility Assist Device Used No (0 pt) Altered Elimination No (0 pt) Score/Fall Risk Level 0 - 2 = Low Risk Oriented to surroundings, Maintained a safe environment. Abuse screen: Denies threats or abuse. Denies injuries from another. Nutritional screening: No deficits noted. Tuberculosis screening: No symptoms or risk factors identified. Assessment: 18:58 Reassessment: Patient appears in no apparent distress at this time. Patient and/or db family updated on plan of care and expected duration. Pain level reassessed. Patient is alert, oriented x 3, equal unlabored respirations, skin warm/dry/pink. BRUISE TO RIGHT BREAST. Pain: Complains of pain in right breast. Neuro: Level of Consciousness is awake, alert, obeys commands, Oriented to person, place, time, situation. Respiratory: Airway is patent Respiratory effort is even, unlabored. 19:05 General: Appears in no apparent distress. uncomfortable, Behavior is calm, cooperative. ay Pain: Complains of pain in chest and right breast and right arm Pain currently is 2 out of 10 on a pain scale. Neuro: Level of Consciousness is awake, alert, obeys commands, Oriented to person, place, time, situation, Speech is normal. Cardiovascular: Denies nausea, vomiting. Respiratory: Airway is patent Respiratory effort is even, unlabored. GI: No signs and/or symptoms were reported involving the gastrointestinal system. : No signs and/or symptoms were reported regarding the genitourinary system. EENT: No signs and/or symptoms were reported regarding the EENT system. Vital Signs: 17:56 BP 147 / 84; Pulse 87; Resp 18; Temp 97.8; Pulse Ox 98% ; Weight 108.86 kg; Height 5 ll1 ft. 4 in. ; Pain 5/10; 19:05 BP 159 / 74; Pulse 65; Resp 19; Temp 98.6; Pulse Ox 97% on R/A; ay 17:56 Body Mass Index 41.20 (108.86 kg, 162.56 cm) ll1 17:56 Pain Scale: Adult ll1 ED Course: 17:43 Patient arrived in ED. im 17:47 Dwayne [facility]utiérrez F[facility]-C [facility] 17:47 aMrt Nation MD is Attending Physician. dr5 17:57 Triage completed. ll1 17:59 Arm band placed on Patient placed in an exam room, on a stretcher. ll1 18:15 Mulu Damon, RN is Primary Nurse. db 18:50 Chest Pa And Lat (2 Views) XRAY In Process Unspecified. EDMS 19:03 Patient has correct armband on for positive identification. Call light in reach. Side db rails up X 1. Warm blanket given. 19:39 Mulu Damon, RN is Primary Nurse. db 20:00 Provided Education on: FOLLOW [employer] . ha1 20:00 No provider procedures requiring assistance completed. ha1 20:00 Patient did not have IV access during this emergency room visit. ha1 Administered Medications: 19:56 Drug: HYDROcodone-acetaminophen PO 5 mg-325 mg 2 tabs PO once Route: PO; db 20:00 Follow up: Response: No adverse reaction; Marked relief of symptoms ha1 Medication: 19:03 VIS not applicable for this client. db Outcome: :22 Discharge ordered by MD. dr5 20:00 Discharged to home via wheelchair, with family, 1 20:00 Condition: stable 20:00 Discharge instructions given to patient, family, Instructed on discharge instructions, follow up and referral plans. Demonstrated understanding of instructions, follow-up care, 20:00 Patient left the ED. [facility] Signatures: Dispatcher [employer] EDMS Toni Antunez RN RN [facility] Sabine Lopez RN RN [facility] Mulu Damon, RN RN Freya Ling Dustin, TOY CONSULTANT-C TOY CONSULTANT-Cdr5 Amanda Becker RN TRINH ay Corrections: (The following items were deleted from the chart) 21:04 21:03 Patient left the ED. ha1 1
[2024-08-04] MEDS ORDERED: HYDROCODONE/APAP 5/325 MG TAB ONE (19:41)
[2024-08-04 21:25] VITALS: BP 147/84; TEMP 97.8; O2SAT 98
== END 2024-08-04 21:03 | disposition home or self-care (01) ==
LOC: ER 17:40
DX: S20.01XA Contusion of right breast, initial encounter (principal); W18.30XA Fall on same level, unspecified, initial encounter; Y92.832 Beach as the place of occurrence of the external cause
CPT/HCPCS: 71046; 99283